=== PATIENT | female | born 1980 | race Caucasian/White ===

== ENCOUNTER 2020-11-27 08:43 | Emergency (ER) | payer OTHER ==
[2020-11-27 08:50] VITALS: BP 115/74; PULSE 77; TEMP 98.2; BMI 31.7
[2020-11-27] MEDS ORDERED: KETOROLAC TROMETHAMINE 30 MG/1 ML VIAL IM ONE (09:32)
[2020-11-27] MEDS ORDERED: KETOROLAC TROMETHAMINE 30 MG/1 ML VIAL ONE (09:53)
== END 2020-11-27 11:55 | disposition home or self-care (01) ==
LOC: JER 08:43
PROC: 3E023GC Introduction of Other Therapeutic Substance into Muscle, Percutaneous Approach (ICD-10-PCS; principal; 2020-11-27)
DX: M25.561 Pain in right knee (principal)
CPT/HCPCS: 73562-TC-RT-FY; 96372; 99284-25

== ENCOUNTER 2020-12-30 17:39 | Emergency (ER) | payer OTHER ==
[2020-12-30 17:48] VITALS: BMI 30.9
[2020-12-30 19:11] LABS: BASO % 0.7 % (0-2.0); HEMATOCRIT 21.9 % (32.4-45.2); LYMPH % 19.5 % (8-40); MCHC 28.3 g/dl (32.0-36.0); MEAN CELL VOLUME 53.5 fl (80-96); MEAN PLT VOLUME 8.6 fl (7.5-11.1); MONO % 6.1 % (3.8-10.2); NEUT % 72.7 % (42.8-82.8); PLATELET COUNT 396 10^3/uL (134-434); RBC 4.09 M/mm3 (3.60-5.2); RDW 19.8 % (11.6-15.6); WHITE BLOOD COUNT 11.6 K/mm3 (4.0-10.0)
[2020-12-30 19:16] LABS: MCH 15.2 pg (25.7-33.7)
[2020-12-30 19:18] LABS: HEMOGLOBIN 6.2 GM/dL (10.7-15.3)
[2020-12-30 19:34] LABS: CALCIUM 8.9 mg/dL (8.5-10.1)
[2020-12-30 19:35] LABS: ALBUMIN 3.6 g/dl (3.4-5.0)
[2020-12-30 19:38] LABS: CREATININE 0.6 mg/dL (0.55-1.3)
[2020-12-30 19:39] LABS: BILIRUBIN,TOTAL 0.5 mg/dL (0.2-1); TOT PROT 7.1 g/dl (6.4-8.2)
[2020-12-30 22:06] LABS: ANISOCYTOSIS 1+; MACROCYTOSIS 0; OVALOCYTE 2+; PLATELET ESTIMATE NORMAL; TEAR DROP CELLS 1+
[2020-12-31 01:18] VITALS: BP 127/75; PULSE 71; TEMP 98.4
[2020-12-31 03:30] LABS: EOS % 1.2 % (0-4.5); HEMATOCRIT 26.8 % (32.4-45.2); HEMOGLOBIN 7.9 GM/dL (10.7-15.3); LYMPH % 17.8 % (8-40); MCHC 29.6 g/dl (32.0-36.0); MEAN CELL VOLUME 58.4 fl (80-96); MEAN PLT VOLUME 8.3 fl (7.5-11.1); MONO % 8.1 % (3.8-10.2); NEUT % 71.9 % (42.8-82.8); PLATELET COUNT 354 10^3/uL (134-434); WHITE BLOOD COUNT 12.5 K/mm3 (4.0-10.0)
[2020-12-31 03:33] LABS: MCH 17.3 pg (25.7-33.7)
== END 2020-12-31 03:52 | disposition home or self-care (01) ==
LOC: JER 17:39
DX: D50.9 Iron deficiency anemia, unspecified (principal)
CPT/HCPCS: 36415; 36430; 80053; 82728; 83540; 83550; 84466; 85025; 86850; 86900; 86901; 86922; 99284-25; P9058

== ENCOUNTER 2021-11-26 08:15 | Emergency (ER) | payer OTHER ==
[2021-11-26 08:24] VITALS: BP 120/78; PULSE 95; RESP 16; TEMP 99.2; BMI 30.9
[2021-11-26] MEDS ORDERED: ACETAMINOPHEN 325 MG TABLET (FP) ONE (09:08)
== END 2021-11-26 10:18 | disposition home or self-care (01) ==
LOC: JER 08:15
DX: R05.1 Acute cough (principal); J02.9 Acute pharyngitis, unspecified; R51.9 Headache, unspecified; B97.4 Respiratory syncytial virus as the cause of diseases classified elsewhere
CPT/HCPCS: 0241U-QW; 99283-25

== ENCOUNTER 2022-04-02 08:43 | Emergency (ER) | payer OTHER ==
[2022-04-02 08:59] VITALS: BP 114/73; PULSE 88; RESP 16; TEMP 98; BMI 31.0
[2022-04-02] MEDS ORDERED: CYCLOBENZAPRINE HCL 10 MG TABLET (FP) PO ONE (09:48)
[2022-04-02] MEDS ORDERED: ACETAMINOPHEN 500 MG TABLET (FP) PO ONE (09:48)
[2022-04-02] MEDS ORDERED: KETOROLAC TROMETHAMINE 30 MG/1 ML VIAL IM ONE (09:48)
[2022-04-02] MEDS ORDERED: LIDOCAINE 5% TOPICAL PATCH TP ONE (09:48)
[2022-04-02] MEDS ORDERED: LIDOCAINE 5% TOPICAL PATCH ONE (10:01)
[2022-04-02] MEDS ORDERED: CYCLOBENZAPRINE HCL 10 MG TABLET (FP) ONE (10:01)
[2022-04-02] MEDS ORDERED: KETOROLAC TROMETHAMINE 30 MG/1 ML VIAL ONE (10:02)
[2022-04-02] MEDS ORDERED: ACETAMINOPHEN 500 MG TABLET (FP) ONE (10:02)
[2022-04-02] MEDS ORDERED: LIDOCAINE PATCH REMOVAL MC ONE (22:00)
== END 2022-04-02 10:37 | disposition home or self-care (01) ==
LOC: JERFT 08:43 → JER 08:43 → JERFT 10:37
PROC: 3E023GC Introduction of Other Therapeutic Substance into Muscle, Percutaneous Approach (ICD-10-PCS; principal; 2022-04-02)
DX: M25.552 Pain in left hip (principal); V49.40XA Driver injured in collision with unspecified motor vehicles in traffic accident, initial encounter
CPT/HCPCS: 72170-TC-FY; 99284-25

== ENCOUNTER 2023-03-16 07:50 | Emergency (ER) | payer OTHER ==
[2023-03-16 08:34] VITALS: RESP 18; BMI 31.7
[2023-03-16] MEDS ORDERED: IBUPROFEN 600 MG TABLET (FP) PO ONE (10:11)
[2023-03-16] MEDS ORDERED: SULFAMETHOXAZOLE/TRIMETHOPRIM 800MG/160MG D.S. TABLET ONE (10:12)
[2023-03-16] MEDS: IBUPROFEN 600 MG TABLET (FP) PO ONE (10:30)
[2023-03-16] MEDS: SULFAMETHOXAZOLE/TRIMETHOPRIM 800MG/160MG D.S. TABLET PO ONE (10:31)
[2023-03-16 11:17] VITALS: BP 120/79; PULSE 92; TEMP 99.2
== END 2023-03-16 11:12 | disposition home or self-care (01) ==
LOC: JER 07:50
PROC: 0H9HXZZ Drainage of Right Upper Leg Skin, External Approach (ICD-10-PCS; principal; 2023-03-16)
DX: L02.415 Cutaneous abscess of right lower limb (principal); M79.89 Other specified soft tissue disorders
CPT/HCPCS: 10060; 76882-TC-RT; 99284-25

== ENCOUNTER 2023-09-17 19:16 | Emergency (ER) | payer OTHER ==
[2023-09-17 19:21] VITALS: BP 123/75; PULSE 105; RESP 18; TEMP 98.7; BMI 30.9
[2023-09-17] MEDS ORDERED: ACETAMINOPHEN 500 MG TABLET (FP) ONE (20:17)
[2023-09-17] MEDS ORDERED: predniSONE 20 MG TABLET (UD) ONE (20:17)
[2023-09-17] MEDS: ACETAMINOPHEN 500 MG TABLET (FP) PO ONE (20:21)
[2023-09-17] MEDS: predniSONE 20 MG TABLET (UD) PO ONE (20:21)
== END 2023-09-17 20:47 | disposition home or self-care (01) ==
LOC: JERFT 19:16
DX: M12.871 Other specific arthropathies, not elsewhere classified, right ankle and foot (principal); M12.872 Other specific arthropathies, not elsewhere classified, left ankle and foot; M79.89 Other specified soft tissue disorders
CPT/HCPCS: 73610-TC-LT-FY; 73610-TC-RT-FY; 99283-25